=== PATIENT | female | born 2000 | race Caucasian/White ===

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

== ENCOUNTER → 2018-01-29 | Outpatient (CLI) | payer OTHER | LOC: COL.RAD 14:02 | DX: N92.6 Irregular menstruation, unspecified (principal) ==

== ENCOUNTER 2019-03-22 22:36 | Emergency (ER) | payer OTHER ==
[~2019-03-22] VITALS: Ht 152 cm; Wt 68.0 kg
[2019-03-22 22:45] VITALS: TEMP 97
[2019-03-22 23:16] LABS: BASO # 0.1 (0.0-0.2); BASO % 0.4 % (0.0-2.0); EOS % 0.1 % (0-4.0); GRAN # 11.9 (1.4-6.5); GRAN % 83.7 % (42.2-75.2); HEMATOCRIT 38.7 % (35.0-45.0); HEMOGLOBIN 11.9 g/dl (12.0-15.0); LYMPH # 1.6 (1.2-3.4); LYMPH % 11.2 % (20.0-51.0); MEAN CELL VOLUME 65 fl (80.0-95.0); MEAN CORPUSCULAR HEMOGLOBIN 20 pg (26.0-32.0); MEAN CORPUSCULAR HGB CONC 31 g/dl (33.0-37.0); MONO # 0.6 (0.1-0.6); MONO % 4.2 % (1.7-9.3); PLATELET COUNT 529 K/mm3 (130-400); RED BLOOD COUNT 5.97 M/mm3 (4.10-5.30); REDCELL DISTRIBUTION WIDTH-CV 19.6 % (11.5-14.5)
[2019-03-22 23:17] LABS: ALBUMIN 4.7 gm/dL (3.5-5.0); BILIRUBIN,TOTAL 0.5 mg/dL (0.0-1.0); CALCIUM 9.5 mg/dL (8.4-10.2); CREATININE, serum 0.65 (0.52-1.25); POTASSIUM 3.8 mmol/L (3.4-5.0); TOTAL PROTEIN 8.5 gm/dL (6.4-8.2)
[2019-03-23 00:33] LABS: COLLECTION METHOD CLEAN CATCH
[2019-03-23 00:44] LABS: MUCOUS Present /lpf; PH 6 (5-8); SQUAMOUS EPITHELIAL None Seen /hpf; URINE APPEARANCE Clear; URINE BACTERIA None Seen /hpf; URINE BILIRUBIN Negative (NEGATIVE); URINE BLOOD 1+ (NEGATIVE); URINE COLOR Yellow; URINE GLUCOSE Negative (NEGATIVE); URINE KETONE 2+ (NEGATIVE); URINE LEUKOCYTE ESTERASE Negative (NEGATIVE); URINE NITRATE Negative (NEGATIVE); URINE PROTEIN(semi-quant) Negative (NEGATIVE); URINE UROBILINOGEN Negative (NEGATIVE)
[2019-03-23] MEDS ORDERED: ZOFRAN ODT4 MG PO (00:44)
[2019-03-23] MEDS ORDERED: VOLTAREN 75 DR75 MG PO (00:44)
[2019-03-23 01:10] VITALS: BP 109/63; PULSE 85
== END 2019-03-23 01:10 | disposition home or self-care (01) ==
LOC: COL.ER 22:36
PROVIDERS: Emergency Medicine
DX: N94.6 Dysmenorrhea, unspecified (principal)
CPT/HCPCS: J1885; J2405; J3010; J7030